=== PATIENT | male | born 1945 | race Caucasian/White ===

== ENCOUNTER 2021-06-13 11:52 | Emergency (ER) | payer MEDICARE ==
[~2021-06-13] VITALS: Ht 185.4 cm; Wt 84.0 kg
[2021-06-13] MEDS ORDERED: ONDANSETRON HCL 4MG/2ML INJ IV STA (12:15)
[2021-06-13] MEDS ORDERED: KETOROLAC 15MG/ML VIAL IV ONE (12:45)
[2021-06-13 12:58] LABS: BASOPHILS % 0.1 % (0.0-2.0); EOSINOPHILS % 0.1 % (0.0-5.0); HEMATOCRIT. 44.6 % (42.0-52.0); HEMOGLOBIN. 15.4 g/dL (14.0-18.0); LYMPHOCYTES % 8.4 % (20.0-50.0); MEAN CORPUSCULAR HEMOGLOBIN 31.5 pg (28.0-32.0); MEAN CORPUSCULAR VOLUME 91.5 fL (80.0-94.0); MEAN PLATELET VOLUME 8.4 fl (7.4-10.4); MONOCYTES % 3.6 % (2.0-8.0); NEUTROPHILS % 87.8 % (40.0-76.0); PLATELET 137 x1000/uL (130-400); RED BLOOD CELL COUNT 4.88 mill/uL (4.7-6.1); RED CELL DISTRIBUTION WIDTH 13.1 % (11.6-14.6)
[2021-06-13 13:09] LABS: CHLORIDE 107 mEq/L (98-107)
[2021-06-13 14:07] LABS: CLARITY URINE CLEAR (CLEAR); COLOR URINE YELLOW (YELLOW); KETONES URINE 1+ (NEGATIVE); LEUKOCYTE ESTERASE URINE TRACE (NEGATIVE); NITRITE URINE NEGATIVE (NEGATIVE); OCCULT BLOOD URINE 2+ (NEGATIVE); PROTEIN URINE NEGATIVE (NEGATIVE); SPECIFIC GRAVITY URINE 1.029 (1.005-1.030); UROBILINOGEN URINE 0.2 E.U./dL (0.2-1.0)
[2021-06-13] MEDS ORDERED: SODIUM CHLORIDE 0.9% 1,000 ML IV NR (14:45)
[2021-06-13] MEDS ORDERED: TAMSULOSIN HCL 0.4MG SR CAPSULE PO ONE (15:30)
[2021-06-13] MEDS ORDERED: MORPHINE SULFATE 4 MG/ML CPJ (NOT FOR IM USE) IV ONE (15:30)
[2021-06-13] MEDS ORDERED: ACET-2708 MT (16:09)
[2021-06-13] MEDS ORDERED: IBUP-2030 MT (16:09)
[2021-06-13] MEDS ORDERED: SULF1TAB48 MT (16:10)
[2021-06-13] MEDS ORDERED: TAMS-11 MT (16:10)
[2021-06-13 16:46] VITALS: BP 145/74
== END 2021-06-13 16:48 | disposition home or self-care (01) ==
LOC: ER 11:52
DX: N13.2 Hydronephrosis with renal and ureteral calculous obstruction (principal); E11.9 Type 2 diabetes mellitus without complications; Z85.46 Personal history of malignant neoplasm of prostate
CPT/HCPCS: 36415; 74176; 80053; 81003; 82962; 83605; 83690; 85025; 93005; 96361; 96374; 96375; 99285; J1885; J2270; J2405